=== PATIENT | female | born 1985 | race Caucasian/White ===

== ENCOUNTER 2023-12-17 10:53 | Day surgery (SDC) | payer OTHER ==
[~2023-12-17] VITALS: Ht 167.6 cm; Wt 71.7 kg
[~2023-12-17 10:53] MED LIST: CVS1CAP2 PO; THERTAB52 PO; TRET0.1C19
[2023-12-17] MEDS ORDERED: TRANEXAMIC ACID 100 MG/ML 10ML VIAL IV ONE (11:00)
[2023-12-17] MEDS ORDERED: NS 250 ML IV SCH (11:10)
[2023-12-17] MEDS: ceFAZolin SOD 2 GM in IV 1 EA IV ONE (12:55)
[2023-12-17] MEDS ORDERED: LIDOCAINE 2% 100MG/5ML SDV (FOR ANES.) As Ordered ONE (12:58)
[2023-12-17] MEDS ORDERED: MIDAZOLAM INJ 2MG/2ML VIAL As Ordered ONE (12:58)
[2023-12-17] MEDS ORDERED: fentaNYL 100 MCG/2 ML INJECTION As Ordered ONE (12:58)
[2023-12-17] MEDS ORDERED: ONDANSETRON 4MG 2ML VIAL As Ordered ONE (12:58)
[2023-12-17] MEDS ORDERED: propofoL 200 MG/20 ML VIAL As Ordered ONE (12:58)
[2023-12-17] MEDS ORDERED: ACETAMINOPHEN 1000MG 100ML IV BAG As Ordered ONE (12:58)
[2023-12-17] MEDS: TRANEXAMIC ACID 100 MG/ML 10ML VIAL As Ordered ONE (13:04)
[2023-12-17] MEDS ORDERED: ePHEDrine SULFATE 25 MG/5 ML(5MG/ML) SYRINGE As Ordered ONE (13:11)
[2023-12-17] MEDS ORDERED: KETOROLAC 60MG 2ML VIAL As Ordered ONE (13:37)
[2023-12-17] MEDS ORDERED: oxyCODONE 5MG TAB PO PRN (14:25)
[2023-12-17] MEDS ORDERED: fentaNYL 100 MCG/2 ML INJECTION IV PRN (14:25)
[2023-12-17] MEDS ORDERED: ONDANSETRON 4MG 2ML VIAL IV PRN (14:25)
[2023-12-17 15:30] VITALS: BP 111/70; TEMP 97.8; O2SAT 100
== END 2023-12-17 15:53 | disposition home or self-care (01) ==
LOC: M SDC 10:53
PROVIDERS: ATTEND Orthopaedic Surgery
DX: M23.222 Derangement of posterior horn of medial meniscus due to old tear or injury, left knee (principal); M67.52 Plica syndrome, left knee; M22.42 Chondromalacia patellae, left knee; M17.9 Osteoarthritis of knee, unspecified
CPT/HCPCS: 29881; 81025; C9290; J0131; J0665; J0690; J1100; J1885; J2250; J2405; J3010

== ENCOUNTER → 2024-01-21 | Outpatient (CLI) | payer OTHER ==
[~2024-01-21] MED LIST changes: +LIDOCAINE 1% MDV 20ML VIAL As Ordered ONE
[2024-01-21 12:35] VITALS: TEMP 97.6
[2024-01-21 12:55] VITALS: BP 124/70; O2SAT 99
[2024-01-21 14:38] LABS: CRYSTALS, BODY FLUID NONE SEEN (NONE SEEN); SOURCE, BODY FLUID CRYSTALS LFT KNEE
[2024-01-21 14:39] LABS: SOURCE, BODY FLUID LFT KNEE; SYNOVIAL FLUID COLOR YELLOW (COLORLESS)
[2024-01-21 14:42] LABS: SOURCE, BODY FLUID GLUCOSE LFT KNEE
[2024-01-21 19:35] LABS: SOURCE, BODY FLUID URIC ACID LFT KNEE; URIC ACID, BODY FLUID 3.7 MG/DL (NOT ESTABLISHED)
== END ==
LOC: M IRPRO 12:17
PROVIDERS: ATTEND Orthopaedic Surgery
DX: M71.22 Synovial cyst of popliteal space [Baker], left knee (principal)